=== PATIENT | male | born 1945 | race Caucasian/White ===

== ENCOUNTER 2023-09-06 20:15 | Inpatient (IN) | payer OTHER ==
[2023-09-06] MEDS ORDERED: ACETAMINOPHEN 1000 MG/100 ML BAG IVPB ONE (20:55)
[2023-09-06] MEDS ORDERED: ASPIRIN 81 MG CHEWABLE TABLETS PO ONE ×2 (20:56→23:17)
[2023-09-06] MEDS ORDERED: ASPIRIN 81 MG CHEWABLE TABLETS ONE ×2 (21:37→23:41)
[2023-09-06] MEDS ORDERED: ACETAMINOPHEN INJECTION 100 ML IVPB ONE (21:38)
[2023-09-06 22:13] LABS: BASO % 0.2 % (0-2.0); EOS % 0.8 % (0-4.5); HEMATOCRIT 42.9 % (35.4-49); HEMOGLOBIN 14.3 GM/dL (11.7-16.9); MCH 28.4 pg (25.7-33.7); MCHC 33.4 g/dl (32.0-35.9); MEAN CELL VOLUME 85.1 fl (80-96); MEAN PLT VOLUME 8.9 fl (7.5-11.1); MONO % 5.7 % (3.8-10.2); NEUT % 84.3 % (42.8-82.8); PLATELET COUNT 304 10^3/uL (134-434); RBC 5.04 M/mm3 (4.00-5.60); RDW 13.8 % (11.9-15.9); WHITE BLOOD COUNT 18.2 K/mm3 (4.0-10.0)
[2023-09-06 22:23] LABS: INR 1.09 (0.83-1.09); PROTHROMBIN TIME (PATIENT) 12.6 SEC (9.7-13.0)
[2023-09-06 22:25] LABS: ACTIVATED PTT 29.7 SECONDS (25.2-36.5)
[2023-09-06 22:58] LABS: POTASSIUM 3.9 mmol/L (3.5-5.1)
[2023-09-06 22:59] LABS: CALCIUM 8.9 mg/dL (8.5-10.1)
[2023-09-06 23:00] LABS: ALBUMIN 3.2 g/dl (3.4-5.0); BLOOD UREA NITROGEN 48.3 mg/dL (7-18)
[2023-09-06] MEDS ORDERED: DEXAMETHASONE 4 MG TABLET (FP) PO ONE (23:01)
[2023-09-06 23:06] LABS: BILIRUBIN,TOTAL 0.6 mg/dL (0.2-1); TOT PROT 6.5 g/dl (6.4-8.2)
[2023-09-06] MEDS ORDERED: HEPARIN NA (PORCINE) 5,000 UNITS/ML 1ML VIAL IVPUSH PRN ×2 (23:17)
[2023-09-06] MEDS ORDERED: HEPARIN NA (PORCINE) 5,000 UNITS/ML 1ML VIAL IVPUSH ONE (23:17)
[2023-09-06] MEDS ORDERED: DEXAMETHASONE 4 MG TABLET (FP) ONE (23:27)
[2023-09-06] MEDS ORDERED: HEPARIN NA (PORCINE) 5,000 UNITS/ML 1ML VIAL ONE (23:41)
[2023-09-06] MEDS ORDERED: HEPARIN INFUSION - 25,000 UNITS/500 ML INFUS.BAG IVPB ONE (23:42)
[2023-09-06] MEDS: HEPARIN INFUSION - 25,000 UNITS/500 ML INFUS.BAG IVPB SCH (23:53)
[2023-09-07] MEDS ORDERED: MAGNESIUM HYDROX 2400MG/30ML ORAL SUSPENSION 30 ML CUP PO PRN (06:28)
[2023-09-07] MEDS ORDERED: ACETAMINOPHEN 500 MG TABLET (FP) PO PRN (06:30)
[2023-09-07] MEDS ORDERED: SENNOSIDES 8.6MG TABLET (FP) PO PRN (06:30)
[2023-09-07 06:34] LABS: HEMATOCRIT 44.2 % (35.4-49); HEMOGLOBIN 14.3 GM/dL (11.7-16.9); MCH 28.6 pg (25.7-33.7); MCHC 32.4 g/dl (32.0-35.9); PLATELET COUNT 249 10^3/uL (134-434); RBC 5.02 M/mm3 (4.00-5.60); RDW 13.9 % (11.9-15.9); WHITE BLOOD COUNT 11.8 K/mm3 (4.0-10.0)
[2023-09-07] MEDS: PANTOPRAZOLE 40 MG TABLET PO SCH (08:00)
[2023-09-07 08:06] LABS: MAGNESIUM 3.5 mg/dL (1.8-2.4)
[2023-09-07 08:17] LABS: LDH 261 U/L (87-246)
[2023-09-07 08:21] LABS: ACTIVATED PTT 53.8 SECONDS (25.2-36.5); INR 1.05 (0.83-1.09); PROTHROMBIN TIME (PATIENT) 12.2 SEC (9.7-13.0)
[2023-09-07 08:26] LABS: ALBUMIN 3.3 g/dl (3.4-5.0); ALK PHOS 91 U/L (45-117); ANION GAP 7 mmol/L (4-13); BILIRUBIN,TOTAL 0.6 mg/dL (0.2-1); BLOOD UREA NITROGEN 48.5 mg/dL (7-18); CALCIUM 8.8 mg/dL (8.5-10.1); CHLORIDE 103 mmol/L (98-107); CHOLESTEROL 113 mg/dL (50-200); CO2 27 mmol/L (21-32); GLUCOSE,RANDOM 160 mg/dL (74-106); HDL CHOLESTEROL 44 mg/dL (40-60); LDL CHOLESTEROL (ONLY SJRH) 54 mg/dL (5-100); POTASSIUM 4.8 mmol/L (3.5-5.1); SGOT/AST 52 U/L (15-37); SGPT/ALT 38 U/L (13-61); SODIUM 137 mmol/L (136-145); TOT PROT 6.7 g/dl (6.4-8.2)
[2023-09-07] MEDS ORDERED: METOPROLOL TARTRATE 25 MG TABLET (FP) ONE (09:07)
[2023-09-07] MEDS ORDERED: PANTOPRAZOLE 40 MG TABLET PO ONE (09:07)
[2023-09-07] MEDS ORDERED: DEXAMETHASONE SOD PHOSPHATE 10 MG/1 ML VIAL ONE (09:07)
[2023-09-07] MEDS ORDERED: DEXAMETHASONE SOD PHOSPHATE 10 MG/1 ML VIAL IVPUSH SCH (10:00)
[2023-09-07] MEDS: METOPROLOL TARTRATE 25 MG TABLET (FP) PO SCH ×2 (10:30→21:44)
[2023-09-07 11:04] LABS: PH,URINE 6.5 (5.0-8.0); URINE APPEARANCE CLEAR; URINE BILIRUBIN NEGATIVE (NEGATIVE); URINE COLOR YELLOW; URINE GLUCOSE (UA) NEGATIVE (NEGATIVE); URINE KETONE NEGATIVE (NEGATIVE); URINE LEUK ESTERASE NEGATIVE (NEGATIVE); URINE NITRITE NEGATIVE (NEGATIVE); URINE PROTEIN NEGATIVE (NEGATIVE); URINE UROBILINOGEN 0.2 mg/dL (0.2-1.0)
[2023-09-07] MEDS: ATORVASTATIN CA 80 MG TABLET (FP) PO SCH (21:44)
[2023-09-07] MEDS: MELATONIN 5 MG TABLETS PO PRN (21:44)
[2023-09-07] MEDS: LITHIUM CARBONATE 300 MG CAPSULE PO SCH (21:44)
[2023-09-07] MEDS: OLANZapine 5 MG TABLET PO SCH (21:46)
[2023-09-08] MEDS: HEPARIN INFUSION - 25,000 UNITS/500 ML INFUS.BAG IVPB SCH (00:02)
[2023-09-08] MEDS: PANTOPRAZOLE 40 MG TABLET PO SCH (06:38)
[2023-09-08 08:39] LABS: ALBUMIN 3.2 g/dl (3.4-5.0); BILIRUBIN,TOTAL 0.6 mg/dL (0.2-1); BLOOD UREA NITROGEN 43.2 mg/dL (7-18); CALCIUM 9.3 mg/dL (8.5-10.1); POTASSIUM 4.6 mmol/L (3.5-5.1); TOT PROT 6.5 g/dl (6.4-8.2)
[2023-09-08] MEDS: METOPROLOL TARTRATE 25 MG TABLET (FP) PO SCH ×2 (10:55→22:23)
[2023-09-08] MEDS: ASPIRIN COATED 81 MG TABLET.EC PO SCH (10:55)
[2023-09-08 12:01] LABS: POTASSIUM 4.3 mmol/L (3.5-5.1)
[2023-09-08 12:02] LABS: CALCIUM 9.5 mg/dL (8.5-10.1)
[2023-09-08 12:03] LABS: ALBUMIN 3.3 g/dl (3.4-5.0)
[2023-09-08 12:07] LABS: CREATININE 1.9 mg/dL (0.55-1.3)
[2023-09-08 12:08] LABS: BILIRUBIN,TOTAL 0.6 mg/dL (0.2-1); TOT PROT 6.7 g/dl (6.4-8.2)
[2023-09-08] MEDS: ATORVASTATIN CA 80 MG TABLET (FP) PO SCH (22:23)
[2023-09-08] MEDS: LITHIUM CARBONATE 300 MG CAPSULE PO SCH (22:23)
[2023-09-08] MEDS: MELATONIN 5 MG TABLETS PO PRN (22:23)
[2023-09-08] MEDS: OLANZapine 5 MG TABLET PO SCH (22:24)
[2023-09-09] MEDS: PANTOPRAZOLE 40 MG TABLET PO SCH (06:07)
[2023-09-09] MEDS: ASPIRIN COATED 81 MG TABLET.EC PO SCH (10:10)
[2023-09-09] MEDS: METOPROLOL TARTRATE 25 MG TABLET (FP) PO SCH ×4 (10:10→21:58)
[2023-09-09] MEDS: OLANZapine 5 MG TABLET PO SCH (21:59)
[2023-09-09] MEDS: ATORVASTATIN CA 80 MG TABLET (FP) PO SCH (21:59)
[2023-09-09] MEDS: LITHIUM CARBONATE 300 MG CAPSULE PO SCH (21:59)
[2023-09-10] MEDS: PANTOPRAZOLE 40 MG TABLET PO SCH (06:04)
[2023-09-10 06:54] LABS: POTASSIUM 4.4 mmol/L (3.5-5.1)
[2023-09-10 07:01] LABS: CALCIUM 9.2 mg/dL (8.5-10.1)
[2023-09-10 07:02] LABS: BLOOD UREA NITROGEN 34.3 mg/dL (7-18)
[2023-09-10 07:05] LABS: CREATININE 1.7 mg/dL (0.55-1.3)
[2023-09-10] MEDS: ASPIRIN COATED 81 MG TABLET.EC PO SCH (10:21)
[2023-09-10] MEDS: METOPROLOL TARTRATE 25 MG TABLET (FP) PO SCH ×2 (10:21→21:53)
[2023-09-10] MEDS: LITHIUM CARBONATE 300 MG CAPSULE PO SCH (21:52)
[2023-09-10] MEDS: ATORVASTATIN CA 80 MG TABLET (FP) PO SCH (21:53)
[2023-09-10] MEDS: OLANZapine 5 MG TABLET PO SCH (21:53)
[2023-09-11] MEDS: PANTOPRAZOLE 40 MG TABLET PO SCH (06:06)
[2023-09-11] MEDS: METOPROLOL TARTRATE 25 MG TABLET (FP) PO SCH ×2 (11:03→22:40)
[2023-09-11] MEDS: ASPIRIN COATED 81 MG TABLET.EC PO SCH (11:04)
[2023-09-11] MEDS: ATORVASTATIN CA 80 MG TABLET (FP) PO SCH (22:40)
[2023-09-11] MEDS: OLANZapine 5 MG TABLET PO SCH (22:41)
[2023-09-11] MEDS: LITHIUM CARBONATE 300 MG CAPSULE PO SCH (22:41)
[2023-09-12] MEDS: PANTOPRAZOLE 40 MG TABLET PO SCH (06:27)
[2023-09-12] MEDS: METOPROLOL TARTRATE 25 MG TABLET (FP) PO SCH ×2 (10:53→21:19)
[2023-09-12] MEDS: ASPIRIN COATED 81 MG TABLET.EC PO SCH (10:54)
[2023-09-12] MEDS: ATORVASTATIN CA 80 MG TABLET (FP) PO SCH (21:19)
[2023-09-12] MEDS: OLANZapine 5 MG TABLET PO SCH (21:19)
[2023-09-12] MEDS: LITHIUM CARBONATE 300 MG CAPSULE PO SCH (21:20)
[2023-09-13] MEDS: PANTOPRAZOLE 40 MG TABLET PO SCH (06:06)
[2023-09-13] MEDS: ASPIRIN COATED 81 MG TABLET.EC PO SCH (10:27)
[2023-09-13] MEDS: METOPROLOL TARTRATE 25 MG TABLET (FP) PO SCH ×2 (10:27→22:33)
[2023-09-13 16:08] VITALS: BMI 21.0
[2023-09-13] MEDS: LITHIUM CARBONATE 300 MG CAPSULE PO SCH (22:33)
[2023-09-13] MEDS: MELATONIN 5 MG TABLETS PO PRN (22:33)
[2023-09-13] MEDS: ATORVASTATIN CA 80 MG TABLET (FP) PO SCH (22:33)
[2023-09-13] MEDS: OLANZapine 5 MG TABLET PO SCH ×2 (22:34→22:38)
[2023-09-14] MEDS: PANTOPRAZOLE 40 MG TABLET PO SCH (05:59)
[2023-09-14] MEDS: METOPROLOL TARTRATE 25 MG TABLET (FP) PO SCH ×2 (10:01→21:14)
[2023-09-14] MEDS: ASPIRIN COATED 81 MG TABLET.EC PO SCH (10:02)
[2023-09-14] MEDS: OLANZapine 5 MG TABLET PO SCH (21:14)
[2023-09-14] MEDS: ATORVASTATIN CA 80 MG TABLET (FP) PO SCH (21:14)
[2023-09-14] MEDS: LITHIUM CARBONATE 300 MG CAPSULE PO SCH (21:14)
[2023-09-14] MEDS: MELATONIN 5 MG TABLETS PO PRN (21:14)
[2023-09-15] MEDS: PANTOPRAZOLE 40 MG TABLET PO SCH (06:25)
[2023-09-15] MEDS: METOPROLOL TARTRATE 25 MG TABLET (FP) PO SCH (09:10)
[2023-09-15] MEDS: ASPIRIN COATED 81 MG TABLET.EC PO SCH (09:11)
[2023-09-15 15:02] VITALS: BP 135/78; PULSE 91; RESP 19; TEMP 97.9
== END 2023-09-15 17:11 | DRG 280 ==
LOC: JER 20:15 → JERBED 09-07 02:07 → J4S 09-07 18:48
PROVIDERS: ADMIT Internal Medicine; ATTEND Family Medicine
DX: I21.4 Non-ST elevation (NSTEMI) myocardial infarction (principal); U07.1 COVID-19; N17.9 Acute kidney failure, unspecified; I11.0 Hypertensive heart disease with heart failure; F31.9 Bipolar disorder, unspecified; I12.9 Hypertensive chronic kidney disease with stage 1 through stage 4 chronic kidney disease, or unspecified chronic kidney disease; F03.90 Unspecified dementia, unspecified severity, without behavioral disturbance, psychotic disturbance, mood disturbance, and anxiety; N18.9 Chronic kidney disease, unspecified; K21.9 Gastro-esophageal reflux disease without esophagitis; I25.10 Atherosclerotic heart disease of native coronary artery without angina pectoris; E78.5 Hyperlipidemia, unspecified
CPT/HCPCS: 0241U-QW; 36415; 71045-TC-FY; 76775-TC; 80048; 80053; 80061; 80178; 81003; 82728; 82962; 83615; 83735; 84484; 85025; 85379; 85610; 85730; 86140; 87086; 93005; 93010; 93306-TC; 97116-GP; 97161-GP; 99285-25; J1100; J1644

== ENCOUNTER 2023-10-19 14:57 | Inpatient (IN) | payer OTHER ==
[2023-10-19 15:38] VITALS: BMI 23.5
[2023-10-19] MEDS ORDERED: ASPIRIN 81 MG CHEWABLE TABLETS PO ONE (16:23)
[2023-10-19] MEDS ORDERED: ASPIRIN 81 MG CHEWABLE TABLETS ONE (16:45)
[2023-10-19 16:49] LABS: BASO % 0.2 % (0-2.0); EOS % 0.3 % (0-4.5); HEMATOCRIT 45.8 % (35.4-49); HEMOGLOBIN 14.6 GM/dL (11.7-16.9); LYMPH % 6.9 % (8-40); MCH 28.3 pg (25.7-33.7); MCHC 31.8 g/dl (32.0-35.9); MEAN PLT VOLUME 8.7 fl (7.5-11.1); MONO % 3.4 % (3.8-10.2); NEUT % 89.2 % (42.8-82.8); PLATELET COUNT 267 10^3/uL (134-434); RBC 5.15 M/mm3 (4.00-5.60); RDW 15.7 % (11.9-15.9); WHITE BLOOD COUNT 18.1 K/mm3 (4.0-10.0)
[2023-10-19 17:01] LABS: INR 1.48 (0.83-1.09); PROTHROMBIN TIME (PATIENT) 17.1 SEC (9.7-13.0)
[2023-10-19 17:04] LABS: ACTIVATED PTT 31.3 SECONDS (25.2-36.5)
[2023-10-19 17:05] LABS: POTASSIUM 4.8 mmol/L (3.5-5.1)
[2023-10-19 17:08] LABS: ALBUMIN 2.3 g/dl (3.4-5.0); BLOOD UREA NITROGEN 29.8 mg/dL (7-18)
[2023-10-19 17:11] LABS: CREATININE 1.7 mg/dL (0.55-1.3)
[2023-10-19 17:12] LABS: BILIRUBIN,TOTAL 0.4 mg/dL (0.2-1); TOT PROT 5.9 g/dl (6.4-8.2)
[2023-10-19 19:56] LABS: EPI CELLS 1 /uL (0-25.1); HYALINE CASTS 0 /uL (0-3.1); PH,URINE 5.5 (5.0-8.0); URINE APPEARANCE CLEAR; URINE BACTERIA 121 /uL (0-1359); URINE BILIRUBIN NEGATIVE (NEGATIVE); URINE COLOR YELLOW; URINE GLUCOSE (UA) NEGATIVE (NEGATIVE); URINE KETONE NEGATIVE (NEGATIVE); URINE LEUK ESTERASE 3+ (NEGATIVE); URINE NITRITE NEGATIVE (NEGATIVE); URINE PROTEIN NEGATIVE (NEGATIVE); URINE WBC 216 /uL (0-25.8)
[2023-10-19 20:38] LABS: URINE CRYSTALS FEW /hpf
[2023-10-19] MEDS ORDERED: MELATONIN 5 MG TABLETS PO PRN (20:55)
[2023-10-19] MEDS ORDERED: SENNOSIDES 8.6MG TABLET (FP) PO PRN (20:55)
[2023-10-19] MEDS ORDERED: ACETAMINOPHEN 325 MG TABLET (FP) PO PRN (21:06)
[2023-10-19] MEDS: METOPROLOL TARTRATE 25 MG TABLET (FP) PO SCH (21:59)
[2023-10-19] MEDS ORDERED: ATORVASTATIN CA 80 MG TABLET (FP) ONE (22:00)
[2023-10-19] MEDS: OLANZapine 2.5 MG TABLET PO SCH (22:04)
[2023-10-19] MEDS: LITHIUM CARBONATE 300 MG CAPSULE PO SCH (22:04)
[2023-10-19] MEDS: ATORVASTATIN CA 80 MG TABLET (FP) PO SCH (22:04)
[2023-10-19] MEDS ORDERED: MELATONIN 5 MG TABLETS ONE (22:58)
[2023-10-20 08:13] LABS: BASO % 0.1 % (0-2.0); EOS % 0.4 % (0-4.5); HEMATOCRIT 41.6 % (35.4-49); HEMOGLOBIN 13.6 GM/dL (11.7-16.9); LYMPH % 6.8 % (8-40); MCHC 32.8 g/dl (32.0-35.9); MEAN CELL VOLUME 88.3 fl (80-96); MONO % 2.6 % (3.8-10.2); NEUT % 90.1 % (42.8-82.8); PLATELET COUNT 218 10^3/uL (134-434); RBC 4.71 M/mm3 (4.00-5.60); RDW 15.5 % (11.9-15.9); WHITE BLOOD COUNT 16.7 K/mm3 (4.0-10.0)
[2023-10-20 08:35] LABS: POTASSIUM 3.8 mmol/L (3.5-5.1)
[2023-10-20 08:40] LABS: BLOOD UREA NITROGEN 30.1 mg/dL (7-18); CALCIUM 9.8 mg/dL (8.5-10.1)
[2023-10-20 08:44] LABS: CREATININE 1.2 mg/dL (0.55-1.3)
[2023-10-20 08:49] LABS: N-TERMINAL BNP 2409.7 pg/ml (5-450)
[2023-10-20] MEDS: PANTOPRAZOLE 40 MG TABLET PO SCH (09:04)
[2023-10-20] MEDS ORDERED: METOPROLOL TARTRATE 25 MG TABLET (FP) ONE (10:06)
[2023-10-20] MEDS ORDERED: ASPIRIN COATED 81 MG TABLET.EC ONE (10:06)
[2023-10-20] MEDS: METOPROLOL TARTRATE 25 MG TABLET (FP) PO SCH ×2 (10:08→23:00)
[2023-10-20] MEDS: ASPIRIN COATED 81 MG TABLET.EC PO SCH (10:08)
[2023-10-20] MEDS ORDERED: FUROSEMIDE 40 MG/4 ML INJECTABLE VIAL IVPUSH ONE (14:59)
[2023-10-20] MEDS ORDERED: FUROSEMIDE 40 MG/4 ML INJECTABLE VIAL ONE (15:14)
[2023-10-20] MEDS: ATORVASTATIN CA 80 MG TABLET (FP) PO SCH (23:00)
[2023-10-20] MEDS: LITHIUM CARBONATE 300 MG CAPSULE PO SCH (23:00)
[2023-10-20] MEDS: OLANZapine 2.5 MG TABLET PO SCH (23:00)
[2023-10-21] MEDS: PANTOPRAZOLE 40 MG TABLET PO SCH (06:23)
[2023-10-21] MEDS: METOPROLOL TARTRATE 25 MG TABLET (FP) PO SCH (09:49)
[2023-10-21] MEDS: ASPIRIN COATED 81 MG TABLET.EC PO SCH (09:50)
[2023-10-21 18:54] VITALS: PULSE 80; RESP 18
[2023-10-21 20:33] VITALS: BP 115/74; TEMP 98.6
== END 2023-10-21 20:55 | DRG 202 ==
LOC: JER 14:57 → JERBED 17:34 → OBSVTOIN 10-20 10:22 → J4S 10-21 06:11
PROVIDERS: ADMIT Internal Medicine; ATTEND Family Medicine
DX: J21.0 Acute bronchiolitis due to respiratory syncytial virus (principal); I13.0 Hypertensive heart and chronic kidney disease with heart failure and stage 1 through stage 4 chronic kidney disease, or unspecified chronic kidney disease; I50.9 Heart failure, unspecified; N18.9 Chronic kidney disease, unspecified; N17.9 Acute kidney failure, unspecified; I25.10 Atherosclerotic heart disease of native coronary artery without angina pectoris; F31.9 Bipolar disorder, unspecified; I45.10 Unspecified right bundle-branch block; R82.71 Bacteriuria; E78.5 Hyperlipidemia, unspecified; K21.9 Gastro-esophageal reflux disease without esophagitis; I25.2 Old myocardial infarction; F01.50 Vascular dementia, unspecified severity, without behavioral disturbance, psychotic disturbance, mood disturbance, and anxiety; M48.061 Spinal stenosis, lumbar region without neurogenic claudication; K59.00 Constipation, unspecified; D72.829 Elevated white blood cell count, unspecified
CPT/HCPCS: 0241U-QW; 36415; 71045-TC-FY; 71250-TC; 80048; 80053; 80061; 80178; 81003; 83880; 84484; 85025; 85610; 85730; 87040; 87086; 87186; 93005; 93010; 99285-25; G0378

== ENCOUNTER 2023-10-27 12:04 | Inpatient (IN) | payer OTHER ==
[2023-10-27 12:35] VITALS: BMI 23.5
[2023-10-27] MEDS ORDERED: LACTATED RINGERS SOLUTION 1000 ML INFUS.BAG IV ONE ×2 (13:00→15:30)
[2023-10-27 14:01] LABS: VENOUS O2 SATURATION 44.3 % (70-80); VENOUS PCO2 51.6 mmHg (38-52); VENOUS PH 7.212 (7.310-7.410)
[2023-10-27 14:25] LABS: URINE APPEARANCE CLEAR; URINE BILIRUBIN NEGATIVE (NEGATIVE); URINE COLOR YELLOW; URINE GLUCOSE (UA) NEGATIVE (NEGATIVE); URINE KETONE TRACE (NEGATIVE); URINE LEUK ESTERASE NEGATIVE (NEGATIVE); URINE NITRITE NEGATIVE (NEGATIVE); URINE PROTEIN NEGATIVE (NEGATIVE); URINE UROBILINOGEN 0.2 mg/dL (0.2-1.0)
[2023-10-27 14:33] LABS: HEMATOCRIT 47.4 % (35.4-49); HEMOGLOBIN 15.3 GM/dL (11.7-16.9); MCH 28.7 pg (25.7-33.7); MCHC 32.3 g/dl (32.0-35.9); MEAN CELL VOLUME 88.7 fl (80-96); MEAN PLT VOLUME 8.9 fl (7.5-11.1); PLATELET COUNT 426 10^3/uL (134-434); RBC 5.34 M/mm3 (4.00-5.60); RDW 16.5 % (11.9-15.9)
[2023-10-27 14:35] LABS: INR 1.72 (0.83-1.09); PROTHROMBIN TIME (PATIENT) 19.8 SEC (9.7-13.0)
[2023-10-27 14:38] LABS: ACTIVATED PTT 35.2 SECONDS (25.2-36.5)
[2023-10-27 14:46] LABS: LACTIC ACID 4.3 mmol/L (0.4-2.0)
[2023-10-27 14:48] LABS: WHITE BLOOD COUNT 36.2 K/mm3 (4.0-10.0)
[2023-10-27 14:52] LABS: POTASSIUM 5.1 mmol/L (3.5-5.1)
[2023-10-27 14:54] LABS: ALBUMIN 2.7 g/dl (3.4-5.0); CALCIUM 10.4 mg/dL (8.5-10.1)
[2023-10-27 14:57] LABS: CREATININE 3.6 mg/dL (0.55-1.3)
[2023-10-27 14:59] LABS: BILIRUBIN,TOTAL 0.8 mg/dL (0.2-1); BLOOD UREA NITROGEN 75.7 mg/dL (7-18); TOT PROT 6.6 g/dl (6.4-8.2)
[2023-10-27] MEDS ORDERED: VANCOMYCIN 1,000 MG in DEXTROSE 5%-WATER - 250 ML IVPB ONE (15:06)
[2023-10-27] MEDS ORDERED: PIPERACILLIN/TAZOB 4.5 GM 4.5 GM in DEXTROSE 5%-WATER 100 ML IVPB ONE (15:06)
[2023-10-27 15:10] LABS: ANISOCYTOSIS 0; MACROCYTOSIS 0
[2023-10-27] MEDS ORDERED: PIPERACILLIN/TAZOB 4.5 GM 4.5 GM/100 ML BAG IVPB ONE (15:27)
[2023-10-27] MEDS ORDERED: VANCOMYCIN 1 GRAM (PRE-DOCKED) 1,000 MG/250 ML BAG IVPB ONE (15:27)
[2023-10-27 16:42] LABS: LACTIC ACID 2.9 mmol/L (0.4-2.0)
[2023-10-27] MEDS: SODIUM CHLORIDE 0.45% 1,000 ML IV SCH (17:14)
[2023-10-27] MEDS ORDERED: AZITHROMYCIN IVPB 500 MG in DEXTROSE 5%-WATER - 250 ML IVPB ONE (18:09)
[2023-10-27] MEDS ORDERED: AZITHROMYCIN IVPB 500 MG/250 ML BAG IVPB ONE (18:19)
[2023-10-27] MEDS: HEPARIN NA (PORCINE) 5,000 UNITS/ML 1ML VIAL SQ SCH (22:15)
[2023-10-27] MEDS ORDERED: HEPARIN NA (PORCINE) 5,000 UNITS/ML 1ML VIAL ONE (22:19)
[2023-10-28 07:15] LABS: HEMATOCRIT 40.2 % (35.4-49); HEMOGLOBIN 12.9 GM/dL (11.7-16.9); MCH 28.6 pg (25.7-33.7); MEAN CELL VOLUME 89.3 fl (80-96); MEAN PLT VOLUME 8.7 fl (7.5-11.1); PLATELET COUNT 254 10^3/uL (134-434); RBC 4.51 M/mm3 (4.00-5.60); RDW 16.2 % (11.9-15.9); WHITE BLOOD COUNT 26.4 K/mm3 (4.0-10.0)
[2023-10-28 07:32] LABS: MAGNESIUM 2.4 mg/dL (1.8-2.4)
[2023-10-28 07:36] LABS: PHOSPHOROUS 4.8 mg/dL (2.5-4.9)
[2023-10-28] MEDS ORDERED: ALBUTEROL SO4 2.5/IPRATROPIUM 0.5 INH SOL 3 ML VIAL.NEB. NEB PRN (08:22)
[2023-10-28] MEDS ORDERED: guaiFENesin/D-METHORPHAN HB 10 ML UNIT-DOSE CUPS PO PRN (08:25)
[2023-10-28] MEDS ORDERED: PIPERACILLIN/TAZOB 2.25 GM 2.25 GM/50 ML BAG IVPB ONE ×2 (09:17→17:32)
[2023-10-28 09:18] LABS: ANISOCYTOSIS 0; MACROCYTOSIS 0
[2023-10-28] MEDS: HEPARIN NA (PORCINE) 5,000 UNITS/ML 1ML VIAL SQ SCH (09:27)
[2023-10-28] MEDS: ASPIRIN COATED 81 MG TABLET.EC PO SCH (09:27)
[2023-10-28] MEDS ORDERED: METOPROLOL TARTRATE 25 MG TABLET (FP) PO SCH (10:00)
[2023-10-28] MEDS ORDERED: PIPERACILLIN/TAZOB 2.25 GM 2.25 GM in DEXTROSE 5%-WATER - 50 ML IVPB SCH (10:00)
[2023-10-28] MEDS ORDERED: HEPARIN NA (PORCINE) 5,000 UNITS/ML 1ML VIAL IVPUSH PRN ×4 (10:25→11:20)
[2023-10-28] MEDS ORDERED: HEPARIN - 25,000 UNIT in SODIUM CHLORIDE 495 ML IV SCH (10:30)
[2023-10-28] MEDS ORDERED: HEPARIN INFUSION - 25,000 UNITS/500 ML INFUS.BAG IVPB ONE (10:53)
[2023-10-28 11:13] LABS: POTASSIUM 4.4 mmol/L (3.5-5.1)
[2023-10-28 11:15] LABS: CALCIUM 9.4 mg/dL (8.5-10.1)
[2023-10-28 11:16] LABS: ALBUMIN 2.2 g/dl (3.4-5.0); BLOOD UREA NITROGEN 77.5 mg/dL (7-18)
[2023-10-28 11:19] LABS: CREATININE 3.3 mg/dL (0.55-1.3)
[2023-10-28 11:21] LABS: BILIRUBIN,TOTAL 0.6 mg/dL (0.2-1); TOT PROT 5.3 g/dl (6.4-8.2)
[2023-10-28] MEDS: HEPARIN INFUSION - 25,000 UNITS/500 ML INFUS.BAG IVPB SCH (11:26)
[2023-10-28] MEDS ORDERED: METOPROLOL TARTRATE 5 MG/5 ML VIAL ONE (12:21)
[2023-10-28] MEDS: METOPROLOL TARTRATE 5 MG/5 ML VIAL IVPUSH SCH ×3 (12:35→23:54)
[2023-10-28] MEDS: BACITRACIN 0.9 GM PACKET TP SCH (12:37)
[2023-10-28 13:25] LABS: HEMATOCRIT 38.2 % (35.4-49); HEMOGLOBIN 12.3 GM/dL (11.7-16.9); MCH 28.2 pg (25.7-33.7); MCHC 32.2 g/dl (32.0-35.9); MEAN CELL VOLUME 87.6 fl (80-96); MEAN PLT VOLUME 8.9 fl (7.5-11.1); PLATELET COUNT 287 10^3/uL (134-434); RBC 4.36 M/mm3 (4.00-5.60); RDW 16.5 % (11.9-15.9); WHITE BLOOD COUNT 27.3 K/mm3 (4.0-10.0)
[2023-10-28] MEDS ORDERED: VANCOMYCIN 1 GM PREMIX - 1 GM/200 ML BAG IVPB SCH ×2 (14:00→15:00)
[2023-10-28] MEDS: SODIUM CHLORIDE 0.45% 1,000 ML IV SCH ×2 (14:23→17:00)
[2023-10-28] MEDS: PIPERACILLIN/TAZOB 2.25 GM 2.25 GM in DEXTROSE 5%-WATER - 50 ML IVPB SCH (17:46)
[2023-10-28] MEDS: OLANZapine 5 MG TABLET PO SCH (21:58)
[2023-10-28] MEDS: ATORVASTATIN CA 80 MG TABLET (FP) PO SCH (21:58)
[2023-10-29] MEDS: PIPERACILLIN/TAZOB 2.25 GM 2.25 GM in DEXTROSE 5%-WATER - 50 ML IVPB SCH ×3 (01:44→17:32)
[2023-10-29] MEDS: SODIUM CHLORIDE 0.45% 1,000 ML IV SCH (01:46)
[2023-10-29] MEDS: METOPROLOL TARTRATE 5 MG/5 ML VIAL IVPUSH SCH ×4 (05:56→23:16)
[2023-10-29 08:49] LABS: POTASSIUM 3.5 mmol/L (3.5-5.1)
[2023-10-29 08:57] LABS: CALCIUM 8.8 mg/dL (8.5-10.1)
[2023-10-29 08:58] LABS: ALBUMIN 1.9 g/dl (3.4-5.0); BLOOD UREA NITROGEN 81.9 mg/dL (7-18)
[2023-10-29 09:01] LABS: CREATININE 3.1 mg/dL (0.55-1.3)
[2023-10-29 09:02] LABS: BILIRUBIN,TOTAL 0.5 mg/dL (0.2-1); TOT PROT 4.6 g/dl (6.4-8.2)
[2023-10-29] MEDS: ASPIRIN COATED 81 MG TABLET.EC PO SCH (10:43)
[2023-10-29] MEDS: BACITRACIN 0.9 GM PACKET TP SCH (12:41)
[2023-10-29] MEDS: HEPARIN INFUSION - 25,000 UNITS/500 ML INFUS.BAG IVPB SCH (15:05)
[2023-10-29] MEDS ORDERED: DEXTROSE 5%-WATER - 1,000 ML with POTASSIUM CHLORIDE 10 MEQ IV SCH ×2 (15:15→18:18)
[2023-10-29] MEDS ORDERED: POTASSIUM CHLORIDE 10 MEQ in DEXTROSE 5%-WATER - 1,000 ML IV SCH (15:24)
[2023-10-29] MEDS: POTASSIUM CHLORIDE 10 MEQ in DEXTROSE 5%-WATER - 1,000 ML IV SCH (19:30)
[2023-10-29] MEDS: ATORVASTATIN CA 80 MG TABLET (FP) PO SCH (22:40)
[2023-10-29] MEDS: OLANZapine 5 MG TABLET PO SCH (22:40)
[2023-10-30] MEDS: PIPERACILLIN/TAZOB 2.25 GM 2.25 GM in DEXTROSE 5%-WATER - 50 ML IVPB SCH ×2 (02:04→10:48)
[2023-10-30] MEDS: METOPROLOL TARTRATE 5 MG/5 ML VIAL IVPUSH SCH ×4 (05:59→22:43)
[2023-10-30 10:06] LABS: HEMOGLOBIN 10.9 GM/dL (11.7-16.9); MCH 29.1 pg (25.7-33.7); MCHC 33.1 g/dl (32.0-35.9); MEAN CELL VOLUME 88.1 fl (80-96); MEAN PLT VOLUME 8.6 fl (7.5-11.1); PLATELET COUNT 153 10^3/uL (134-434); RBC 3.74 M/mm3 (4.00-5.60); RDW 16.1 % (11.9-15.9); WHITE BLOOD COUNT 12.7 K/mm3 (4.0-10.0)
[2023-10-30 10:23] LABS: POTASSIUM 3.2 mmol/L (3.5-5.1)
[2023-10-30] MEDS: ASPIRIN COATED 81 MG TABLET.EC PO SCH (10:43)
[2023-10-30] MEDS: POTASSIUM CHLORIDE 10 MEQ in DEXTROSE 5%-WATER - 1,000 ML IV SCH ×2 (10:43→17:56)
[2023-10-30 10:44] LABS: ALBUMIN 1.8 g/dl (3.4-5.0)
[2023-10-30 10:46] LABS: BLOOD UREA NITROGEN 66.6 mg/dL (7-18); CALCIUM 8.4 mg/dL (8.5-10.1)
[2023-10-30 10:47] LABS: CREATININE 2.9 mg/dL (0.55-1.3)
[2023-10-30 10:48] LABS: BILIRUBIN,TOTAL 0.5 mg/dL (0.2-1); TOT PROT 4.7 g/dl (6.4-8.2)
[2023-10-30] MEDS: BACITRACIN 0.9 GM PACKET TP SCH (10:48)
[2023-10-30 17:18] LABS: INR 1.13 (0.83-1.09); PROTHROMBIN TIME (PATIENT) 13.1 SEC (9.7-13.0)
[2023-10-30 17:20] LABS: ACTIVATED PTT 66.9 SECONDS (25.2-36.5)
[2023-10-30] MEDS ORDERED: AMOX TR/POTASSIUM CLAVULANATE 250 MG/5 ML BOTTLE PO SCH (17:30)
[2023-10-30] MEDS: KCL 10 MEQ IVPB 10 MEQ/100 ML INFUS.BAG IVPB SCH ×2 (17:53→20:02)
[2023-10-30] MEDS: HEPARIN INFUSION - 25,000 UNITS/500 ML INFUS.BAG IVPB SCH (18:13)
[2023-10-30] MEDS: OLANZapine 5 MG TABLET PO SCH (22:42)
[2023-10-30] MEDS: ATORVASTATIN CA 80 MG TABLET (FP) PO SCH (22:42)
[2023-10-31] MEDS: METOPROLOL TARTRATE 5 MG/5 ML VIAL IVPUSH SCH ×4 (05:43→23:30)
[2023-10-31] MEDS: POTASSIUM CHLORIDE 10 MEQ in DEXTROSE 5%-WATER - 1,000 ML IV SCH ×2 (05:50→19:42)
[2023-10-31] MEDS: AMOX TR/POTASSIUM CLAVULANATE 250 MG/5 ML BOTTLE PO SCH ×2 (10:22→18:28)
[2023-10-31] MEDS: BACITRACIN 0.9 GM PACKET TP SCH (11:38)
[2023-10-31] MEDS: ASPIRIN COATED 81 MG TABLET.EC PO SCH (11:38)
[2023-10-31 13:18] LABS: HEMATOCRIT 32.5 % (35.4-49); HEMOGLOBIN 10.5 GM/dL (11.7-16.9); MCH 27.8 pg (25.7-33.7); MCHC 32.2 g/dl (32.0-35.9); MEAN CELL VOLUME 86.4 fl (80-96); MEAN PLT VOLUME 8.8 fl (7.5-11.1); PLATELET COUNT 120 10^3/uL (134-434); RBC 3.76 M/mm3 (4.00-5.60); WHITE BLOOD COUNT 10.5 K/mm3 (4.0-10.0)
[2023-10-31 13:36] LABS: POTASSIUM 3.3 mmol/L (3.5-5.1)
[2023-10-31 13:41] LABS: ALBUMIN 1.8 g/dl (3.4-5.0); CALCIUM 8.3 mg/dL (8.5-10.1); MAGNESIUM 2.2 mg/dL (1.8-2.4)
[2023-10-31 13:42] LABS: BLOOD UREA NITROGEN 52.6 mg/dL (7-18)
[2023-10-31 13:43] LABS: BILIRUBIN,TOTAL 0.3 mg/dL (0.2-1); CREATININE 2.1 mg/dL (0.55-1.3)
[2023-10-31 13:44] LABS: TOT PROT 4.4 g/dl (6.4-8.2)
[2023-10-31] MEDS ORDERED: POTASSIUM CHLORIDE ORAL LIQUID 20 MEQ/15 ML PO ONE (15:15)
[2023-10-31] MEDS: KCL 10 MEQ IVPB 10 MEQ/100 ML INFUS.BAG IVPB SCH (19:59)
[2023-10-31] MEDS: ATORVASTATIN CA 80 MG TABLET (FP) PO SCH (21:51)
[2023-10-31] MEDS: NYSTATIN 100000 UNIT/GM TOPICAL OINTMENT 15 GM TUBE TP SCH (21:51)
[2023-10-31] MEDS: HEPARIN NA (PORCINE) 5,000 UNITS/ML 1ML VIAL SQ SCH (21:51)
[2023-10-31] MEDS: OLANZapine 5 MG TABLET PO SCH (21:51)
[2023-11-01] MEDS: METOPROLOL TARTRATE 5 MG/5 ML VIAL IVPUSH SCH ×3 (05:41→18:14)
[2023-11-01] MEDS: POTASSIUM CHLORIDE 10 MEQ in DEXTROSE 5%-WATER - 1,000 ML IV SCH ×2 (06:53→17:47)
[2023-11-01 07:27] LABS: BASO % 0.1 % (0-2.0); EOS % 0.3 % (0-4.5); HEMATOCRIT 35.7 % (35.4-49); HEMOGLOBIN 11.6 GM/dL (11.7-16.9); MCH 28.8 pg (25.7-33.7); MCHC 32.6 g/dl (32.0-35.9); MEAN CELL VOLUME 88.6 fl (80-96); MEAN PLT VOLUME 9.1 fl (7.5-11.1); MONO % 3.1 % (3.8-10.2); NEUT % 87.5 % (42.8-82.8); PLATELET COUNT 108 10^3/uL (134-434); RBC 4.03 M/mm3 (4.00-5.60); RDW 16.5 % (11.9-15.9); WHITE BLOOD COUNT 9.7 K/mm3 (4.0-10.0)
[2023-11-01 07:43] LABS: POTASSIUM 3.7 mmol/L (3.5-5.1)
[2023-11-01 07:50] LABS: ALBUMIN 1.8 g/dl (3.4-5.0); BLOOD UREA NITROGEN 43.1 mg/dL (7-18)
[2023-11-01 07:53] LABS: CREATININE 1.8 mg/dL (0.55-1.3)
[2023-11-01 07:55] LABS: BILIRUBIN,TOTAL 0.4 mg/dL (0.2-1); TOT PROT 4.9 g/dl (6.4-8.2)
[2023-11-01] MEDS: AMOX TR/POTASSIUM CLAVULANATE 250 MG/5 ML BOTTLE PO SCH ×2 (10:19→17:48)
[2023-11-01] MEDS: HEPARIN NA (PORCINE) 5,000 UNITS/ML 1ML VIAL SQ SCH ×2 (10:19→21:16)
[2023-11-01] MEDS: ASPIRIN COATED 81 MG TABLET.EC PO SCH (10:19)
[2023-11-01] MEDS: BACITRACIN 0.9 GM PACKET TP SCH (10:40)
[2023-11-01] MEDS: NYSTATIN 100000 UNIT/GM TOPICAL OINTMENT 15 GM TUBE TP SCH ×2 (10:40→21:17)
[2023-11-01] MEDS: OLANZapine 5 MG TABLET PO SCH ×2 (21:15→21:28)
[2023-11-01] MEDS: ATORVASTATIN CA 80 MG TABLET (FP) PO SCH ×2 (21:15→21:27)
[2023-11-02] MEDS: METOPROLOL TARTRATE 5 MG/5 ML VIAL IVPUSH SCH ×2 (00:28→05:59)
[2023-11-02] MEDS: POTASSIUM CHLORIDE 10 MEQ in DEXTROSE 5%-WATER - 1,000 ML IV SCH (06:40)
[2023-11-02 09:10] LABS: HEMATOCRIT 36.8 % (35.4-49); HEMOGLOBIN 12.1 GM/dL (11.7-16.9); MCH 28.7 pg (25.7-33.7); MCHC 32.9 g/dl (32.0-35.9); MEAN CELL VOLUME 87.4 fl (80-96); MEAN PLT VOLUME 9.1 fl (7.5-11.1); PLATELET COUNT 104 10^3/uL (134-434); RBC 4.22 M/mm3 (4.00-5.60); RDW 16.4 % (11.9-15.9); WHITE BLOOD COUNT 9.2 K/mm3 (4.0-10.0)
[2023-11-02 09:19] LABS: POTASSIUM 3.9 mmol/L (3.5-5.1)
[2023-11-02 09:22] LABS: BLOOD UREA NITROGEN 33.4 mg/dL (7-18); CALCIUM 8.6 mg/dL (8.5-10.1)
[2023-11-02 09:25] LABS: CREATININE 1.4 mg/dL (0.55-1.3)
[2023-11-02 09:26] LABS: BILIRUBIN,TOTAL 0.3 mg/dL (0.2-1)
[2023-11-02] MEDS: HEPARIN NA (PORCINE) 5,000 UNITS/ML 1ML VIAL SQ SCH ×2 (10:29→22:29)
[2023-11-02] MEDS: BACITRACIN 0.9 GM PACKET TP SCH (10:29)
[2023-11-02] MEDS: ASPIRIN COATED 81 MG TABLET.EC PO SCH ×2 (10:29→11:30)
[2023-11-02] MEDS: METOPROLOL TARTRATE 25 MG TABLET (FP) PO SCH ×3 (10:29→22:34)
[2023-11-02] MEDS: NYSTATIN 100000 UNIT/GM TOPICAL OINTMENT 15 GM TUBE TP SCH ×2 (10:30→22:34)
[2023-11-02] MEDS: AMOX TR/POTASSIUM CLAVULANATE 250 MG/5 ML BOTTLE PO SCH ×2 (10:30→17:15)
[2023-11-02] MEDS: AMINO ACIDS/PROTEIN HYDROLYS 30 ML LIQUID.PKT PO SCH (17:15)
[2023-11-02] MEDS: OLANZapine 5 MG TABLET PO SCH (22:34)
[2023-11-02] MEDS: ATORVASTATIN CA 80 MG TABLET (FP) PO SCH (22:34)
[2023-11-03 08:51] LABS: HEMATOCRIT 35.8 % (35.4-49); HEMOGLOBIN 11.7 GM/dL (11.7-16.9); MCH 28.9 pg (25.7-33.7); MCHC 32.7 g/dl (32.0-35.9); MEAN CELL VOLUME 88.4 fl (80-96); MEAN PLT VOLUME 9.6 fl (7.5-11.1); PLATELET COUNT 123 10^3/uL (134-434); RBC 4.05 M/mm3 (4.00-5.60); RDW 16.3 % (11.9-15.9); WHITE BLOOD COUNT 9.6 K/mm3 (4.0-10.0)
[2023-11-03] MEDS: AMOX TR/POTASSIUM CLAVULANATE 250 MG/5 ML BOTTLE PO SCH ×2 (10:54→18:09)
[2023-11-03] MEDS: AMINO ACIDS/PROTEIN HYDROLYS 30 ML LIQUID.PKT PO SCH ×2 (11:00→18:09)
[2023-11-03] MEDS: HEPARIN NA (PORCINE) 5,000 UNITS/ML 1ML VIAL SQ SCH ×2 (11:01→22:20)
[2023-11-03] MEDS: ASPIRIN COATED 81 MG TABLET.EC PO SCH (11:06)
[2023-11-03] MEDS: NYSTATIN 100000 UNIT/GM TOPICAL OINTMENT 15 GM TUBE TP SCH ×2 (11:07→22:22)
[2023-11-03] MEDS: METOPROLOL TARTRATE 25 MG TABLET (FP) PO SCH ×2 (11:07→22:03)
[2023-11-03] MEDS: BACITRACIN 0.9 GM PACKET TP SCH (11:10)
[2023-11-03] MEDS: MULTIVITAMINS (DAILY MVI) TABLET (FP) PO SCH (11:10)
[2023-11-03] MEDS: ATORVASTATIN CA 80 MG TABLET (FP) PO SCH (22:03)
[2023-11-03] MEDS: OLANZapine 5 MG TABLET PO SCH (22:03)
[2023-11-03] MEDS: LITHIUM CARBONATE 300 MG CAPSULE PO SCH (22:12)
[2023-11-04] MEDS: AMINO ACIDS/PROTEIN HYDROLYS 30 ML LIQUID.PKT PO SCH ×2 (09:37→16:47)
[2023-11-04] MEDS: MULTIVITAMINS (DAILY MVI) TABLET (FP) PO SCH (09:38)
[2023-11-04] MEDS: HEPARIN NA (PORCINE) 5,000 UNITS/ML 1ML VIAL SQ SCH ×2 (09:38→21:05)
[2023-11-04] MEDS: METOPROLOL TARTRATE 25 MG TABLET (FP) PO SCH ×2 (09:38→21:05)
[2023-11-04] MEDS: ASPIRIN COATED 81 MG TABLET.EC PO SCH (09:38)
[2023-11-04] MEDS: AMOX TR/POTASSIUM CLAVULANATE 250 MG/5 ML BOTTLE PO SCH ×2 (09:39→16:46)
[2023-11-04] MEDS: BACITRACIN 0.9 GM PACKET TP SCH (09:43)
[2023-11-04] MEDS: NYSTATIN 100000 UNIT/GM TOPICAL OINTMENT 15 GM TUBE TP SCH ×2 (09:43→23:22)
[2023-11-04] MEDS: ATORVASTATIN CA 80 MG TABLET (FP) PO SCH (21:05)
[2023-11-04] MEDS: OLANZapine 5 MG TABLET PO SCH (21:05)
[2023-11-04] MEDS: LITHIUM CARBONATE 300 MG CAPSULE PO SCH (21:06)
[2023-11-05 06:38] VITALS: RESP 18
[2023-11-05] MEDS: ASPIRIN COATED 81 MG TABLET.EC PO SCH (10:52)
[2023-11-05] MEDS: MULTIVITAMINS (DAILY MVI) TABLET (FP) PO SCH (10:53)
[2023-11-05] MEDS: AMINO ACIDS/PROTEIN HYDROLYS 30 ML LIQUID.PKT PO SCH (10:53)
[2023-11-05] MEDS: HEPARIN NA (PORCINE) 5,000 UNITS/ML 1ML VIAL SQ SCH (10:53)
[2023-11-05] MEDS: METOPROLOL TARTRATE 25 MG TABLET (FP) PO SCH (10:53)
[2023-11-05] MEDS: AMOX TR/POTASSIUM CLAVULANATE 250 MG/5 ML BOTTLE PO SCH (10:54)
[2023-11-05 11:59] VITALS: BP 127/82; PULSE 96; TEMP 98.1
[2023-11-05] MEDS: BACITRACIN 0.9 GM PACKET TP SCH (12:21)
[2023-11-05] MEDS: NYSTATIN 100000 UNIT/GM TOPICAL OINTMENT 15 GM TUBE TP SCH (12:21)
== END 2023-11-05 12:31 | DRG 871 ==
LOC: JER 12:04 → JERBED 17:50 → J4S 10-28 19:52
PROVIDERS: ADMIT Internal Medicine; ATTEND Internal Medicine
DX: A41.9 Sepsis, unspecified organism (principal); G92.8 Other toxic encephalopathy; I21.3 ST elevation (STEMI) myocardial infarction of unspecified site; J12.0 Adenoviral pneumonia; N17.9 Acute kidney failure, unspecified; E87.0 Hyperosmolality and hypernatremia; I50.22 Chronic systolic (congestive) heart failure; F03.918 Unspecified dementia, unspecified severity, with other behavioral disturbance; E87.20 Acidosis, unspecified; J01.00 Acute maxillary sinusitis, unspecified; K21.9 Gastro-esophageal reflux disease without esophagitis; F31.9 Bipolar disorder, unspecified; I25.10 Atherosclerotic heart disease of native coronary artery without angina pectoris; E78.5 Hyperlipidemia, unspecified
CPT/HCPCS: 0241U-QW; 36415; 70450-TC; 71045-TC-FY; 71250-TC; 74176-TC; 76775-TC; 80053; 80178; 80307; 81003; 82140; 82550; 82553; 82803; 82962; 83605; 83735; 84100; 84484; 85025; 85027; 85610; 85730; 86850; 86900; 86901; 87040; 87086; 87635; 93005; 93010; 93306-TC; 94640; 99291; G0480; J1644